=== PATIENT | female | born 1985 | race Caucasian/White ===

== ENCOUNTER 2017-08-16 10:24 | Inpatient (IN) | payer BC ==
[2017-08-16] MEDS ORDERED: LACTATED RINGER'S 1,000 ML IV (11:42)
[2017-08-16] MEDS ORDERED: CARBOPROST 250 MCG INJ IM ×2 (12:00→23:00)
[2017-08-16] MEDS ORDERED: MISOPROSTOL 200 MCG TAB PR ×2 (12:00→23:00)
[2017-08-16] MEDS ORDERED: METHYLERGONOVINE 0.2 MG INJ IM ×2 (12:00→23:00)
[2017-08-16 13:40] LABS: ADD MAN DIFF? NO
[2017-08-16 13:50] LABS: WHITE BLOOD COUNT 8.6 10^3/ul (4.8-10.8)
[2017-08-16 13:50] LABS: BASOPHIL # 0.1 10^3/ul (0.0-0.1); BASOPHILS % 0.6 % (0.0-2.0); EOSINOPHILS % 0.4 % (0.0-7.0); LYMPHOCYTES % 22.9 % (15.0-51.0); MEAN CORPUSCULAR HEMOGLOBIN 30.7 pg (29.0-33.0); MEAN CORPUSCULAR HGB CONC 34.3 g/dl (32.0-37.0); MEAN CORPUSCULAR VOLUME 89.5 fl (82.0-101.0); MEAN PLATELET VOLUME 11.8 fl (7.4-10.4); MONOCYTE # 0.7 10^3/ul (0.3-0.9); MONOCYTES % 7.9 % (0.0-11.0); NEUTROPHIL # 5.8 10^3/ul (1.6-7.5); NEUTROPHILS % 67.7 % (39.0-77.0); PLATELET COUNT 211 10^3/UL (140-415); RED BLOOD COUNT 3.91 10^6/ul (4.20-5.40); RED CELL DISTRIBUTION WIDTH 12.9 % (11.5-14.5)
[2017-08-16 14:02] LABS: INR 0.93; PROTIME 12.5 Sec (11.9-14.9)
[2017-08-16 14:03] LABS: PARTIAL THROMBOPLASTIN TIME 26.4 Sec (25.0-35.0)
[2017-08-16 14:38] LABS: HEPATITIS B SURFACE ANTIGEN NEGATIVE (NEGATIVE)
[2017-08-16] MEDS: LACTATED RINGER'S 1,000 ML IV (16:41)
[2017-08-16 16:48] LABS: RAPID PLASMA REAGIN NONREACTIVE (NR)
[2017-08-16] MEDS: CITRIC ACID/SODIUM CITRATE 15 ML CUP PO (17:13)
[2017-08-16] MEDS: ONDANSETRON 4 MG INJ IV (17:16)
[2017-08-16] MEDS: CEFAZOLIN 2 GM/50 ML (PMX) 50 ML IV (17:36)
[2017-08-16] MEDS ORDERED: NALOXONE (0.4 MG/ML) INJ IV (18:30)
[2017-08-16] MEDS ORDERED: EPHEDrine SULFATE 50 MG/5 ML SYG IV (18:30)
[2017-08-16] MEDS ORDERED: MEPERIDINE 25 MG INJ IV (18:30)
[2017-08-16] MEDS ORDERED: TRIMETHOBENZAMIDE 100 MG/ML VIAL IM ×2 (18:30)
[2017-08-16] MEDS ORDERED: ALBUTEROL 0.083% (NEB) 2.5 MG/3 ML AMP HHN (18:30)
[2017-08-16] MEDS ORDERED: IPRATROPIUM (NEB) 0.5 MG/2.5 ML AMP HHN (18:30)
[2017-08-16] MEDS ORDERED: OXYCODONE/ACETAMINOPHEN (5/325) TAB PO ×2 (18:30)
[2017-08-16] MEDS ORDERED: ONDANSETRON 4 MG INJ IV ×2 (18:30)
[2017-08-16] MEDS ORDERED: DIPHENHYDRAMINE 50 MG INJ IV ×2 (18:30)
[2017-08-16] MEDS ORDERED: FENTAnyl 50 MCG/ML VIAL IV ×2 (18:30)
[2017-08-16] MEDS ORDERED: NALBUPHINE HCL (10 MG/1 ML) INJ IV (18:30)
[2017-08-16] MEDS ORDERED: HYDROmorphONE (0.2 MG/ML) 10ML SYG IV ×3 (18:30)
[2017-08-16] MEDS ORDERED: hydrALAzine 20 MG INJ IV (18:30)
[2017-08-16] MEDS ORDERED: morphine 2 MG INJ IV (18:30)
[2017-08-16] MEDS ORDERED: LABETALOL HCL 20MG INJ IV (18:30)
[2017-08-16] MEDS: KETOROLAC 30 MG INJ IV (19:30)
[2017-08-16] MEDS: OXYTOCIN 30 UNITS/LR 500 ML IV (19:54)
[2017-08-16] MEDS: FENTAnyl 50 MCG/ML VIAL IV (20:33)
[2017-08-16] MEDS ORDERED: OXYTOCIN 30 UNITS/LR 500 ML IV (23:00)
[2017-08-17] MEDS: OXYTOCIN 30 UNITS/LR 500 ML IV (01:28)
[2017-08-17] MEDS: KETOROLAC 30 MG INJ IV ×2 (06:23→15:36)
[2017-08-17] MEDS: SENNA/DOCUSATE NA (8.6MG/50MG) TAB PO ×2 (08:34→20:37)
[2017-08-17 10:19] LABS: ADD MAN DIFF? NO
[2017-08-17 10:22] LABS: BASOPHILS % 0.3 % (0.0-2.0); EOSINOPHILS % 0.5 % (0.0-7.0); HEMATOCRIT 24.5 % (37.0-47.0); HEMOGLOBIN 8.3 g/dl (12.0-16.0); LYMPHOCYTES # 1.4 10^3/ul (0.8-2.9); LYMPHOCYTES % 15.8 % (15.0-51.0); MEAN CORPUSCULAR HEMOGLOBIN 30.6 pg (29.0-33.0); MEAN CORPUSCULAR HGB CONC 33.9 g/dl (32.0-37.0); MEAN CORPUSCULAR VOLUME 90.4 fl (82.0-101.0); MEAN PLATELET VOLUME 10.8 fl (7.4-10.4); MONOCYTE # 0.6 10^3/ul (0.3-0.9); MONOCYTES % 7.1 % (0.0-11.0); NEUTROPHIL # 6.7 10^3/ul (1.6-7.5); NEUTROPHILS % 75.8 % (39.0-77.0); PLATELET COUNT 141 10^3/UL (140-415); RED BLOOD COUNT 2.71 10^6/ul (4.20-5.40); RED CELL DISTRIBUTION WIDTH 12.9 % (11.5-14.5)
[2017-08-17 10:22] LABS: WHITE BLOOD COUNT 8.8 10^3/ul (4.8-10.8)
[2017-08-17] MEDS: LANOLIN 7 GM TUBE TOP (11:20)
[2017-08-17] MEDS: LACTATED RINGER'S 1,000 ML IV ×5 (11:22→22:34)
[2017-08-17] MEDS: morphine 2 MG INJ IV (11:36)
[2017-08-17] MEDS: FERROUS SULFATE (EC) 325 MG TAB PO (20:37)
[2017-08-17] MEDS: IBUPROFEN 800 MG TAB PO (22:30)
[2017-08-18] MEDS: LACTATED RINGER'S 1,000 ML IV ×3 (03:53→21:30)
[2017-08-18] MEDS: IBUPROFEN 800 MG TAB PO ×3 (05:29→21:30)
[2017-08-18] MEDS: FERROUS SULFATE (EC) 325 MG TAB PO ×3 (09:12→21:30)
[2017-08-18] MEDS: SENNA/DOCUSATE NA (8.6MG/50MG) TAB PO ×2 (09:12→21:00)
[2017-08-18] MEDS: OXYCODONE/ACETAMINOPHEN (5/325) TAB PO (15:40)
[2017-08-18] MEDS: ACETAMINOPHEN 500 MG TAB PO (23:24)
[2017-08-19] MEDS: ACETAMINOPHEN 500 MG TAB PO (03:49)
[2017-08-19] MEDS: LACTATED RINGER'S 1,000 ML IV ×3 (03:49→12:00)
[2017-08-19] MEDS: IBUPROFEN 800 MG TAB PO ×3 (05:46→22:07)
[2017-08-19] MEDS: FERROUS SULFATE (EC) 325 MG TAB PO ×3 (08:59→22:07)
[2017-08-19] MEDS: SENNA/DOCUSATE NA (8.6MG/50MG) TAB PO ×2 (09:00→21:00)
[2017-08-19] MEDS: DIPHTH/TET/ACEL PERTUSS (ADULT) 0.5 ML VIAL IM* (09:00)
[2017-08-20] MEDS: IBUPROFEN 800 MG TAB PO ×2 (06:47→14:32)
[2017-08-20] MEDS: SENNA/DOCUSATE NA (8.6MG/50MG) TAB PO (09:00)
[2017-08-20] MEDS: FERROUS SULFATE (EC) 325 MG TAB PO ×2 (09:08→14:25)
[2017-08-20] MEDS: OXYCODONE/ACETAMINOPHEN (5/325) TAB PO ×2 (09:10→14:31)
== END 2017-08-20 17:00 | disposition home or self-care (01) | DRG 766 ==
LOC: L-D 10:24 → PP1 23:00
PROVIDERS: Obstetrics & Gynecology
PROC: 10D00Z1 Extraction of Products of Conception, Low, Open Approach (ICD-10-PCS; principal; 2017-08-16 17:00)
DX: O34.211 Maternal care for low transverse scar from previous cesarean delivery (principal); Z3A.39 39 weeks gestation of pregnancy; Z37.0 Single live birth; G97.1 Other reaction to spinal and lumbar puncture
CPT/HCPCS: 85025; 85610; 85730; 86592; 86850; 86900; 86901; 87340; 99464